=== PATIENT | female | born 1970 | race Caucasian/White ===

== ENCOUNTER 2022-05-29 09:14 | Inpatient (IN) ==
[2022-05-29] MEDS ORDERED: IOPAMIDOL 100 ML BOTTLE IV ONE (09:15)
[2022-05-29] MEDS ORDERED: KETOROLAC 30 MG/ML VIAL IV ONE (09:43)
--- NOTE | 2022-05-29 09:45 | Emergency Department Note ---
HPI General Chief complaint: Sorethroat Stated complaint: swollen glands in neck Time Seen by Provider: 05/29/22 09:16 Source: patient Mode of arrival: ambulatory History of Present Illness HPI Narrative: Narrative: Patient is a 51-year-old female with a history of hypertension, type 1 diabetes, and hyperlipidemia who presents to the emergency department due to throat and neck pain. She states that she has been seen several times recently. 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 She was given steroids and acyclovir, but did not take these. She states that she was concerned about her blood sugar with the steroids, so did not take them until she could talk to her "diabetes doctor." She did not take the acyclovir because this was melyssa ething that had to be taken multiple times today. She went to [facility] where she was prescribed valacyclovir which does not have to be taken as often. She states that she has started to take both the steroid and valacyclovir. Over the last day she has begun to have severe throat pain and pain of the neck on the right side. She states that it hurts to swallow. She endorses pain to her ear on the right. She denies any other symptoms at this time. Related Data Home Medications Medication Instructions Recorded Confirmed famotidine 20 mg tablet (Pepcid) 20 mg PO BID 01/23/21 04/05/22 insulin lispro [Humalog U-100 subcut 01/23/21 04/05/22 Insulin] estradiol 0.5 mg tablet 0.5 mg PO QDAY 04/05/22 04/05/22 Previous Rx's Medication Instructions Recorded meloxicam 7.5 mg tablet 15 mg PO .daily PRN pain #60 tabs 09/07/21 albuterol sulfate 90 mcg/actuation 2 puff inhalation Q4H PRN 02/03/22 aerosol inhaler shortness of breath or wheezing #8.5 grams tramadol 50 mg tablet 50 mg PO QHS PRN pain #4 tabs 02/25/22 hydrochlorothiazide 25 mg tablet 25 mg PO QDAY #90 tabs 04/05/22 losartan 50 mg tablet 50 mg PO QDAY #90 tabs 04/05/22 acyclovir 800 mg tablet 800 mg PO 5XD 7 days #35 tabs 05/25/22 valacyclovir 1 gram tablet 1,000 mg PO Q8H 7 days #21 tabs 05/27/22 Allergies Allergy/AdvReac Type Severity Reaction Status Date / Time atenolol Allergy Severe Difficulty Verified 05/29/22 09:22 Breathing Cefaclor [From Ceclor] Allergy Unknown Rash & Verified 05/29/22 09:22 asthma flare up cephalexin [From Keflex] Allergy Unknown Rash & Verified 05/29/22 09:22 asthma flare up Sulfa (Sulfonamide Allergy Unknown Rash & Verified 05/29/22 09:22 Antibiotics) asthma flare up Review of Systems ROS ROS Narrative: Narrative: Constitutional: Denies fever or weakness Eyes: Denies eye pain or vision change ENT ED: Reports ear pain, throat pain, congestion and rhinorrhea; Denies hearing loss Cardiovascular: Denies chest pain, dyspnea on exertion, orthopnea or edema Respiratory: Denies shortness of breath or cough Gastrointestinal: Denies abdominal pain, nausea, vomiting, diarrhea, constipation, hematochezia or melena Musculoskeletal: Denies back pain or myalgia Integumentary: Denies rash or lesions Neurological: Denies headache, weakness, numbness, confusion, abnormal gait or dizziness PFSH Narrative Patient History Narrative: Narrative: Medical/Surgical/Family History All Active Problems (Updated 05/29/22 @ 13:37 by Harrison Monk MD) Sepsis (Acute) Soft tissue infection (Acute) Viral upper respiratory tract infection (Acute) Rodriguez's palsy (Acute) Medicare annual wellness visit, initial (Acute) Hypertension (Acute) Type 1 diabetes (Chronic) High cholesterol (Acute) GERD (gastroesophageal reflux disease) (Acute) Gastroparesis (Acute) Neuropathy (Acute) Kidney disease (Acute) Hyperlipidemia (Acute) Pain, joint, multiple sites (Chronic) History of smoking (Acute) Sinusitis (Acute) UTI (urinary tract infection) (Acute) Medical History Diabetic cheirarthropathy Gastroparesis GERD (gastroesophageal reflux disease) High cholesterol History of smoking quit in 2017 Hyperlipidemia Hypertension Kidney disease Medicare annual wellness visit, initial Neuropathy Pain, joint, multiple sites Type 1 diabetes UTI (urinary tract infection) Surgical History History of x2 History of cholecystectomy late 20s History of hysterectomy 2010 - ovaries intact History of right breast biopsy 2019 History of tonsillectomy Hx of appendectomy 20s Family History Mother Uterine cancer Family/Other Breast cancer Social History Smoking Status: Former smoker Alcohol Intake Frequency: does not drink Substance Use: does not use Exam Narrative Narrative: Narrative: General General appearance: Present alert and in no apparent distress; Absent anxious, appears intoxicated or sleepy Head Head: Present atraumatic and normocephalic Eye Eye: Present PERRL and EOMI; Absent scleral icterus or nystagmus ENT ENT: Present mucous membranes moist and TM's normal bilaterally; Absent normal o ropharynx (Erythema) or nasal congestion Neck Neck: Present full ROM; Absent tenderness Chest Chest: Present normal inspection and symmetric chest wall rise Respiratory Respiratory: Present normal lung sounds bilaterally; Absent respiratory distress or accessory muscle use Cardiovascular Cardiovascular: Present normal rhythm, tachycardia and normal heart sounds Adbominal Abdominal: Present soft and normal bowel sounds; Absent distention Extremities Extremities: Present normal inspection and full ROM; Absent tenderness Back Back: Present normal inspection and full ROM; Absent tenderness Neurological Neurological: Present alert and oriented X3 Psychiatric Psychiatric: Present normal affect and normal mood Skin Skin: Present warm (WNL), dry and normal color Course Vital Signs Vital signs: Vital Signs Temperature 99.4 F H 05/29/22 09:18 Pulse Rate 123 H 05/29/22 09:18 Respiratory Rate 18 05/29/22 09:18 Blood Pressure 113/67 05/29/22 09:18 Pulse Oximetry (%) 99 05/29/22 09:18 Oxygen Delivery Method Room Air 05/29/22 09:18 Temperature 99.4 F H 05/29/22 09:18 Pulse Rate 114 H 05/29/22 13:18 Respiratory Rate 18 05/29/22 09:18 Blood Pressure 122/55 05/29/22 10:18 Pulse Oximetry (%) 98 05/29/22 13:18 Oxygen Delivery Method Room Air 05/29/22 09:18 [facility] MDM Narrative Medical decision making narrative: Narrative: Patient is a 51-year-old female presents to the emergency department due to sore throat. Differential diagnoses include strep, mono, and deep space infection of the neck. Patient's labs do demonstrate a very elevated white blood cell count of 31. This may partially be due to patient's recent initiation of steroids. Given patient's tachycardia and white blood cell count elevation blood cultures, procalcitonin, and CG 4 have been ordered. Antibiotics have also been ordered. CT scan results were given verbally to me by Dr. Ruiz. He stated that there were enlarged lymph nodes on the right as well as inflammation peripheral to the larynx. Given these findings I have spoken to Dr. Bishop and he has agreed to see and evaluate patient for admission. Lab Data 05/29/22 10:11 Labs: Lab Results 05/29/22 05/29/22 05/29/22 Range/Units 10:06 10:11 10:11 WBC 31.7 H* (4.5-11.0) K/mcL RBC 4.24 (3.59-5.38) M/mcL Hgb 12.0 (11.2-15.7) g/dL Hct 35.3 (34.1-44.9) % POC Hct 35.0 L (36-48) MCV 83.3 (80.0-100.0) fL MCH 28.3 (26.0-34.0) pg MCHC 34.0 (31.0-36.0) g/dL RDW 12.1 (11.5-14.5) % Plt Count 223 (140-440) K/mcL MPV 11.6 (8.8-12.5) fL Immature Gran % (Auto) 1.0 H (0.0-0.5) % Neut % (Auto) 89.9 H (38.0-78.0) % Lymph % (Auto) 2.5 L (15.5-49.0) % [place] % (Auto) 6.4 (1.0-12.0) % Eos % (Auto) 0 (0.0-7.0) % Baso % (Auto) 0.2 (0.0-2.0) % Lymph # (Auto) 0.79 L (1.50-4.80) K/mcL [place] # (Auto) 2.02 H (0.10-0.90) K/mcL Eos # (Auto) 0 (0.00-0.70) K/mcL Baso # (Auto) 0.07 (0.00-0.30) K/mcL Immature Gran # 0.33 H (0.00-0.05) K/mcl Absolute Neutrophils 28.44 H (1.80-8.00) K/mcL POC VBG pH (7.32-7.42) POC VBG pCO2 at Temp (41-51) POC VBG pO2 (25-40) POC VBG HCO3 (24-28) POC VBG Total CO2 (25-29) POC Venous O2 Sat (40-70) POC VBG Base Excess (-2-2) VBG Lactic Acid (0.5-2) POC Sodium 134 (133-145) POC Potassium 3.7 (3.3-5.1) POC Chloride 98 (96-108) POC Total CO2 27.0 (22-30) POC BUN 29 H (6-20) POC Creatinine 1.2 (0.6-1.2) POC Glucose 283 H (70-105) POC WB Ioniz Calcium 1.18 (1.16-1.32) Procalcitonin (<0.10) ng/mL Monoscreen Negative (Negative) 05/29/22 05/29/22 Range/Units 12:02 12:13 WBC (4.5-11.0) K/mcL RBC (3.59-5.38) M/mcL Hgb (11.2-15.7) g/dL Hct (34.1-44.9) % POC Hct (36-48) MCV (80.0-100.0) fL MCH (26.0-34.0) pg MCHC (31.0-36.0) g/dL RDW (11.5-14.5) % Plt Count (140-440) K/mcL MPV (8.8-12.5) fL Immature Gran % (Auto) (0.0-0.5) % Neut % (Auto) (38.0-78.0) % Lymph % (Auto) (15.5-49.0) % [place] % (Auto) (1.0-12.0) % Eos % (Auto) (0.0-7.0) % Baso % (Auto) (0.0-2.0) % Lymph # (Auto) (1.50-4.80) K/mcL [place] # (Auto) (0.10-0.90) K/mcL Eos # (Auto) (0.00-0.70) K/mcL Baso # (Auto) (0.00-0.30) K/mcL Immature Gran # (0.00-0.05) K/mcl Absolute Neutrophils (1.80-8.00) K/mcL POC VBG pH 7.40 (7.32-7.42) POC VBG pCO2 at Temp 39.1 L (41-51) POC VBG pO2 31 (25-40) POC VBG HCO3 24.5 (24-28) POC VBG Total CO2 26.0 (25-29) POC Venous O2 Sat 60.0 (40-70) POC VBG Base Excess 0 (-2-2) VBG Lactic Acid 0.6 (0.5-2) POC Sodium (133-145) POC Potassium (3.3-5.1) POC Chloride (96-108) POC Total CO2 (22-30) POC BUN (6-20) POC Creatinine (0.6-1.2) POC Glucose (70-105) POC WB Ioniz Calcium (1.16-1.32) Procalcitonin 0.14 H (<0.10) ng/mL Monoscreen (Negative) ED POC Tests ED POC Tests: Streptococcus A Rapid Test Negative Discharge Plan Patient/Caregiver Discharge Instructions Pt seen by MORTGAGE MANAGER/PA only: No Clinical Impression: Sepsis, Soft tissue infection Patient Disposition: Xfer As Inpt ([facility]) Follow up with: Devon Juarez MD [Primary Care Provider] - Prescriptions: No Action meloxicam 7.5 mg tablet 15 mg PO .daily PRN (Reason: pain) Qty: 60 0RF Rx Instructions: with food albuterol sulfate 90 mcg/actuation HFA aerosol inhaler 2 puff inhalation Q4H PRN (Reason: shortness of breath or wheezing) Qty: 8.5 0RF hydrochlorothiazide 25 mg tablet 25 mg PO QDAY Qty: 90 3RF losartan 50 mg tablet 50 mg PO QDAY Qty: 90 3RF famotidine [Pepcid] 20 mg tablet 20 mg PO BID insulin lispro [Humalog U-100 Insulin] subcut Patient Comments: PUMP estradiol 0.5 mg tablet 0.5 mg PO QDAY tramadol 50 mg tablet 50 mg PO QHS PRN (Reason: pain) Qty: 4 0RF valacyclovir 1 gram tablet 1,000 mg PO Q8H 7 Days Qty: 21 0RF acyclovir 800 mg tablet 800 mg PO 5XD 7 Days Qty: 35 0RF Rx Instructions: space evenly during waking hours
[2022-05-29 10:11] LABS: POC Calcium, Ionized 1.18 (1.16-1.32); POC Creatinine 1.2 (0.6-1.2); POC Potassium 3.7 (3.3-5.1)
[2022-05-29] MEDS ORDERED: 0.9 % SODIUM CHLORIDE 1,000 ML IV ONE ×3 (10:12→11:16)
[2022-05-29 10:58] LABS: Basophils # (Auto) 0.07 K/mcL (0.00-0.30); Basophils % (Auto) 0.2 % (0.0-2.0); Eosinophils # (Auto) 0 K/mcL (0.00-0.70); Eosinophils % (Auto) 0 % (0.0-7.0); Hematocrit 35.3 % (34.1-44.9); Lymphocytes # (Auto) 0.79 K/mcL (1.50-4.80); Lymphocytes % (Auto) 2.5 % (15.5-49.0); Mean Cell Volume 83.3 fL (80.0-100.0); Mean Platelet Volume 11.6 fL (8.8-12.5); Monocytes # (Auto) 2.02 K/mcL (0.10-0.90); Monocytes % (Auto) 6.4 % (1.0-12.0); Neutrophils % (Auto) 89.9 % (38.0-78.0); Platelet Count 223 K/mcL (140-440); RBC 4.24 M/mcL (3.59-5.38); Red Cell Distribution Width 12.1 % (11.5-14.5); WBC 31.7 K/mcL (4.5-11.0)
[2022-05-29] MEDS ORDERED: CEFEPIME 1 GM VIAL IV ONE (11:11)
[2022-05-29] MEDS ORDERED: VANCOMYCIN 1,500 MG in 0.9 % SODIUM CHLORIDE 500 ML IV ONE (11:11)
--- NOTE | 2022-05-29 12:51 | Internal Med History&Physical ---
HPI History of Present Illness Patient information: Note initiated : 05/29/22 at 12:48 pm Service Date, if different from initiated Date: [] Patient: Marlin Aceves a 51 y/o F admitted on for swollen glands in neck. Chief Complaint: [] History of present illness: Ms. Aceves is a 51 year old Female with a history of type 1 diabetes mellitus, hypertension, hyperlipidemia who presents for right-sided neck pain and difficulty swallowing. The patient says that about 3 weeks ago she developed sinus pain followed by right facial drooping consistent with Rodriguez's palsy. The patient was started on antivirals with valacyclovir and also given a pres cription for prednisone which she did not initially take. Patient says that her sinus pain improved however she later developed right-sided neck pain and chills. The pain progressively worsened so she decided to go to the emergency department. In the emergency department, the patient had a fever and tachycardia and leukocytosis. A CT of her neck reportedly showed significant amount of inflammation, no abscess and no evidence of airway impingement. Hospital medicine was consulted for admission for sepsis secondary to a soft tissue neck infection. Review of systems Constitutional: Positive for chills Neck: Positive for right-sided and neck pain Eyes: no vision changes or pain Cardiovascular: no chest pain, no palpitations Respiratory: no cough or dyspnea Gastrointestinal: Positive for odynophagia, mild nausea but no vomiting, no abdominal pain, no diarrhea Genitourinary: no dysuria or difficulty voiding Musculoskeletal: no arthralgia or myalgia Integumentary: no skin lesion or wound Neurological: no focal weakness or numbness Psychiatric: no anxiety or depression Physical exam Head: Atraumatic, normal inspection. Eyes: normal appearance, no scleral icterus. Neck: Right-sided neck edema, tenderness to light palpation Respiratory: no respiratory distress. Cardiovascular: normal rate and rhythm, S1, S2. GI/Abdominal: soft, nontender, no guarding. Extremities: full range of motion, nontender. Neurological: Right-sided facial droop including forehead muscles consistent with Rodriguez's palsy Psychiatric: normal mood. Skin: Mild right neck erythema PFSH PFSH All Active Problems Viral upper respiratory tract infection (Acute) Rodriguez's palsy (Acute) Medicare annual wellness visit, initial (Acute) Hypertension (Acute) Type 1 diabetes (Chronic) High cholesterol (Acute) GERD (gastroesophageal reflux disease) (Acute) Gastroparesis (Acute) Neuropathy (Acute) Kidney disease (Acute) Hyperlipidemia (Acute) Pain, joint, multiple sites (Chronic) History of smoking (Acute) Sinusitis (Acute) UTI (urinary tract infection) (Acute) Medical History Diabetic cheirarthropathy Gastroparesis GERD (gastroesophageal reflux disease) High cholesterol History of smoking quit in 2017 Hyperlipidemia Hypertension Kidney disease Medicare annual wellness visit, initial Neuropathy Pain, joint, multiple sites Type 1 diabetes UTI (urinary tract infection) Surgical History History of x2 History of cholecystectomy late 20s History of hysterectomy 2010 - ovaries intact History of right breast biopsy 2019 History of tonsillectomy Hx of appendectomy 20s Family History Mother Uterine cancer Family/Other Breast cancer Social History household members: spouse and family housing: house lives independently: Yes marital status: occupational status: disabled smoking status: Former smoker smoking status stop date: 03/21/16 alcohol intake frequency: does not drink substance use type: does not use MEDS/ALLERGIES Home Medications and Allergies Home Medications Medication Instructions Recorded Confirmed Type famotidine 20 mg tablet (Pepcid) 20 mg PO BID 01/23/21 04/05/22 History insulin lispro [Humalog U-100 subcut 01/23/21 04/05/22 History Insulin] meloxicam 7.5 mg tablet 15 mg PO .daily PRN pain #60 tabs 09/07/21 04/05/22 Rx albuterol sulfate 90 mcg/actuation 2 puff inhalation Q4H PRN 02/03/22 04/05/22 Rx aerosol inhaler shortness of breath or wheezing #8.5 grams tramadol 50 mg tablet 50 mg PO QHS PRN pain #4 tabs 02/25/22 04/05/22 Rx estradiol 0.5 mg tablet 0.5 mg PO QDAY 04/05/22 04/05/22 History hydrochlorothiazide 25 mg tablet 25 mg PO QDAY #90 tabs 04/05/22 Rx losartan 50 mg tablet 50 mg PO QDAY #90 tabs 04/05/22 Rx acyclovir 800 mg tablet 800 mg PO 5XD 7 days #35 tabs 05/25/22 Rx valacyclovir 1 gram tablet 1,000 mg PO Q8H 7 days #21 tabs 05/27/22 05/27/22 Rx Allergies Allergy/AdvReac Type Severity Reaction Status Date / Time atenolol Allergy Severe Difficulty Verified 05/29/22 09:22 Breathing Cefaclor [From Ceclor] Allergy Unknown Rash & Verified 05/29/22 09:22 asthma flare up cephalexin [From Keflex] Allergy Unknown Rash & Verified 05/29/22 09:22 asthma flare up Sulfa (Sulfonamide Allergy Unknown Rash & Verified 05/29/22 09:22 Antibiotics) asthma flare up EXAM Constitutional Vitals: Temp Pulse Resp BP Pulse Ox O2 Del Method 99.4 F H 118 H 18 122/55 98 Room Air 05/29/22 09:18 05/29/22 12:39 05/29/22 09:18 05/29/22 10:18 05/29/22 12:39 05/29/22 09:18 DATA Data Completed and Pending Labs: Labs from last 24 hours 05/29/22 05/29/22 05/29/22 12:13 12:02 10:11 WBC RBC Hgb Hct POC Hct MCV MCH MCHC RDW Plt Count MPV Immature Gran % (Auto) Neut % (Auto) Lymph % (Auto) [place] % (Auto) Eos % (Auto) Baso % (Auto) Lymph # (Auto) [place] # (Auto) Eos # (Auto) Baso # (Auto) Immature Gran # Absolute Neutrophils POC VBG pH 7.40 POC VBG pCO2 at Temp 39.1 L POC VBG pO2 31 POC VBG HCO3 24.5 POC VBG Total CO2 26.0 POC Venous O2 Sat 60.0 POC VBG Base Excess 0 VBG Lactic Acid 0.6 POC Sodium POC Potassium POC Chloride POC Total CO2 POC BUN POC Creatinine POC Glucose POC WB Ioniz Calcium Procalcitonin 0.14 H Monoscreen Negative 05/29/22 05/29/22 10:11 10:06 WBC 31.7 H* RBC 4.24 Hgb 12.0 Hct 35.3 POC Hct 35.0 L MCV 83.3 MCH 28.3 MCHC 34.0 RDW 12.1 Plt Count 223 MPV 11.6 Immature Gran % (Auto) 1.0 H Neut % (Auto) 89.9 H Lymph % (Auto) 2.5 L [place] % (Auto) 6.4 Eos % (Auto) 0 Baso % (Auto) 0.2 Lymph # (Auto) 0.79 L [place] # (Auto) 2.02 H Eos # (Auto) 0 Baso # (Auto) 0.07 Immature Gran # 0.33 H Absolute Neutrophils 28.44 H POC VBG pH POC VBG pCO2 at Temp POC VBG pO2 POC VBG HCO3 POC VBG Total CO2 POC Venous O2 Sat POC VBG Base Excess VBG Lactic Acid POC Sodium 134 POC Potassium 3.7 POC Chloride 98 POC Total CO2 27.0 POC BUN 29 H POC Creatinine 1.2 POC Glucose 283 H POC WB Ioniz Calcium 1.18 Procalcitonin Monoscreen A/P Narrative A/P Narrative: Assessment: 51-year-old female with a history of type 1 diabetes mellitus managed with an insulin pump, hypertension, hyperlipidemia, recent Rodriguez's palsy admitted for sepsis secondary to a soft tissue neck infection. Per report, radiology does not think there is a drainable fluid collection associated with this infection. #Sepsis secondary to a soft tissue neck infection #Type 1 diabetes mellitus #Hypertension #Hyperlipidemia #Rodriguez's palsy Plan -Vancomycin IV per pharmacy and Unasyn. -IV fluid. -Analgesics for neck pain. -Follow blood cultures x2. -Follow-up pending CT report. -Monitor for signs of airway compromise due to neck edema. -Utilize insulin pump and continuous glucose meter for inpatient diabetes mellitus management. -Monitor CBC and chemistry. -Home medication reconciliation. -Consistent carbohydrate diet. -DVT prophylaxis: Lovenox -Disposition: Admit to inpatient PCU for IV antibiotics, IV fluid and monitoring. If all goes well, I anticipate the patient will discharge to home in about 3 days on oral antibiotics. Time Spent With Patient Time: Total time spent is greater than 50% in coordination of care (as documented) at patient's floor/unit and/or counseling patient:
[2022-05-29] MEDS ORDERED: AMPICILLIN SODIUM/SULBACTAM NA 3 GM in 0.9 % SODIUM CHLORIDE 100 ML IV SCH (14:00)
[2022-05-29] MEDS ORDERED: KETOROLAC 30 MG/ML VIAL IV PRN (14:49)
[2022-05-29] MEDS ORDERED: SENNOSIDES 1 TABLET PO PRN (14:49)
[2022-05-29] MEDS ORDERED: LACTULOSE 20 GM/30 ML ORAL.SOL PO PRN (14:49)
[2022-05-29] MEDS ORDERED: VANCOMYCIN PER PHARMACY IV ONE (14:49)
--- NOTE | 2022-05-29 14:50 | Cat Scan Report ---
CLINICAL INFORMATION: Throat pain with right-sided swelling with dysphagia COMPARISON: None. TECHNIQUE: 80ml of Isovue-[id number] were injected and 0.625mm helical slices were obtained from orbital floor through the thoracic inlet. Following reconstructions, sagittal, coronal and axial reformatted images were processed. Exam was reviewed at bone, lung and soft tissue windows. The exam was performed using radiation dose optimization techniques including, but not limited to, automated exposure control, adjustment of the mA and/or kV according to patient size and use of iterative reconstruction technique. FINDINGS: There is mild wall thickening of the right oropharynx and nasopharynx with inflammation in the parapharyngeal soft tissues with extension inferior to right periglottic region. There are 4-5 markedly enlarged lymph nodes at the level 1B and two levels predominantly in the submandibular region. Findings most compatible with right pharyngitis. The true and false vocal cords, epiglottis, aryepiglottic folds, tongue base and prevertebral soft tissues are all unremarkable. Trachea and cervical esophageal regions are all normal. The carotid and jugular vascular systems are unremarkable. The thyroid is normal in size. There is a complex solid cystic nodule superior pole the right thyroid spanning 16 mm. An 8 mm enhancing nodule seen in the mid left thyroid and a 5 mm solid cystic nodule inferior right lobe of thyroid. Both submandibular and parotid glands are normal and symmetric in size configuration and attenuation without focal lesion. Visualized paranasal sinuses are clear. Lung apices are unremarkable. The cervical spine is normal in curvature and alignment without osseous abnormality. Cervical cord is normal. IMPRESSION: Moderate thickening of the right nasopharynx and oropharynx mck[place] including the pharyngeal mucosal space with inflammation extending in the right extra pharyngeal soft tissues inferiorly to the right periglottic region. Findings suggestive of pharyngitis. Enlarged level two and 1B lymph nodes, predominantly in the submandibular region, likely represent reactive adenopathy. Scattered thyroid nodules suggest thyroid ultrasound Interpreted and Authenticated by: Mike Ruiz 05/29/22
[2022-05-29] MEDS: HYDROcodone/APAP 5/325MG TABLET PO PRN ×2 (14:58→20:55)
[2022-05-29] MEDS: ACETAMINOPHEN 325 MG TABLET PO PRN ×2 (14:59→20:57)
[2022-05-29] MEDS: 0.9 % SODIUM CHLORIDE 1,000 ML IV SCH (15:08)
[2022-05-29] MEDS: 0.9 % SODIUM CHLORIDE 10 ML SYRINGE IV SCH ×2 (15:09→22:12)
[2022-05-29] MEDS ORDERED: KETOROLAC 15 MG/ML VIAL IV PRN (15:30)
[2022-05-29] MEDS: AMPICILLIN SODIUM/SULBACTAM NA 3 GM in 0.9 % SODIUM CHLORIDE 100 ML IV SCH ×2 (16:27→23:00)
[2022-05-29] MEDS ORDERED: HYDROmorphone 0.5 MG/0.5 ML SYRINGE ONE ×2 (17:55→19:01)
[2022-05-29] MEDS: HYDROmorphone 0.5 MG/0.5 ML SYRINGE IV PRN ×2 (17:56→19:02)
[2022-05-29] MEDS ORDERED: KETOROLAC 15 MG/ML VIAL IV SCH (18:00)
[2022-05-29] MEDS: ONDANSETRON 4 MG/2 ML VIAL IV PRN (19:02)
[2022-05-29] MEDS: DOCUSATE SODIUM 100 MG CAPSULE PO SCH (20:19)
[2022-05-29] MEDS ORDERED: METOCLOPRAMIDE 10 MG/2 ML VIAL ONE (22:17)
[2022-05-29] MEDS: METOCLOPRAMIDE 10 MG/2 ML VIAL IV PRN (22:17)
[2022-05-30] MEDS: AMPICILLIN SODIUM/SULBACTAM NA 3 GM in 0.9 % SODIUM CHLORIDE 100 ML IV SCH ×4 (00:16→17:34)
[2022-05-30] MEDS: 0.9 % SODIUM CHLORIDE 1,000 ML IV SCH ×4 (01:48→21:04)
[2022-05-30] MEDS: HYDROmorphone 0.5 MG/0.5 ML SYRINGE IV PRN ×3 (04:41→15:28)
[2022-05-30] MEDS: 0.9 % SODIUM CHLORIDE 10 ML SYRINGE IV SCH ×3 (05:13→20:07)
[2022-05-30] MEDS: ONDANSETRON 4 MG/2 ML VIAL IV PRN ×3 (05:35→15:28)
[2022-05-30 06:37] LABS: Basophils # (Auto) 0.05 K/mcL (0.00-0.30); Basophils % (Auto) 0.2 % (0.0-2.0); Eosinophils # (Auto) 0.04 K/mcL (0.00-0.70); Eosinophils % (Auto) 0.2 % (0.0-7.0); Hematocrit 28.8 % (34.1-44.9); Hemoglobin 9.3 g/dL (11.2-15.7); Lymphocytes # (Auto) 0.97 K/mcL (1.50-4.80); Lymphocytes % (Auto) 4.6 % (15.5-49.0); Mean Cell Volume 87.5 fL (80.0-100.0); Mean Corpuscular HGB Conc 32.3 g/dL (31.0-36.0); Mean Platelet Volume 11.5 fL (8.8-12.5); Monocytes # (Auto) 1.26 K/mcL (0.10-0.90); Neutrophils % (Auto) 87.8 % (38.0-78.0); Platelet Count 176 K/mcL (140-440); RBC 3.29 M/mcL (3.59-5.38); Red Cell Distribution Width 12.5 % (11.5-14.5); WBC 21.1 K/mcL (4.5-11.0)
[2022-05-30] MEDS ORDERED: METOCLOPRAMIDE 10 MG/2 ML VIAL ONE (06:54)
[2022-05-30] MEDS: METOCLOPRAMIDE 10 MG/2 ML VIAL IV PRN ×3 (06:55→19:03)
[2022-05-30 06:58] LABS: ALT/SGPT 96 U/L (<40); AST/SGOT 110 U/L (<32); Albumin 2.7 gm/dL (3.2-5.2); Alkaline Phosphatase 121 U/L (39-117); Bilirubin,Direct < 0.2 mg/dL (0-0.3); Bilirubin,Total 0.3 mg/dL (0.1-1.0); Blood Urea Nitrogen 26 mg/dL (6-20); Carbon Dioxide 22 mmol/L (22-30); Chloride 108 mmol/L (96-108); Globulin 2.7 gm/dL (2.2-3.7); Glomerular Filtration Rate 65; Glucose 183 mg/dL (70-105); Lactate Dehydrogenase 224 U/L (135-225); Phosphorous 2.4 mg/dL (2.5-4.5); Triglycerides 107 mg/dL (<150); Uric Acid 4.6 mg/dL (2.5-8.0)
--- NOTE | 2022-05-30 08:46 | Internal Med Progress Note ---
SUBJECTIVE Subjective Patient information: Note initiated : 05/30/22 at 8:44 am Service Date, if different from initiated Date: [] Patient: Marlin Aceves 51 y/o F admitted on 05/29/22 for swollen glands in neck. Chief Complaint: [] Interval history: Ms. Aceves is a 51 year old Female with a history of type 1 diabetes mellitus, hypertension, hyperlipidemia who presents for right-sided neck pain and difficulty swallowing. The patient says that about 3 weeks ago she developed sinus pain followed by right facial drooping consistent with Rodriguez's palsy. The patient was started on antivirals with valacyclovir and also given a prescription for prednisone which she did not initially take. Patient says that her sinus pain improved however she later developed right-sided neck pain and chills. The pain progressively worsened so she decided to go to the emergency department. In the emergency department, the patient had a fever and tachycar jovanni and leukocytosis. A CT of her neck reportedly showed significant amount of inflammation, no abscess and no evidence of airway impingement. Hospital medicine was consulted for admission for sepsis secondary to a soft tissue neck infection. 05/30 Patient did have high-grade temperatures but no fevers overnight. White blood cell count now trending down. Patient did have nausea and vomiting, Zofran was not effective so Reglan IV as needed was added and more effective. Note the patient does have a history of gastroparesis. Blood cultures pending. Continues on vancomycin IV and Unasyn. Physical exam Head: Atraumatic, normal inspection. Eyes: normal appearance, no scleral icterus. Neck: Right-sided neck edema, tenderness to light palpation Respiratory: no respiratory distress. Cardiovascular: normal rate and rhythm, S1, S2. GI/Abdominal: soft, nontender, no guarding. Extremities: full range of motion, nontender. Neurological: Right-sided facial droop including forehead muscles consistent with Rodriguez's palsy Psychiatric: normal mood. Skin: Mild right neck erythema Constitutional Vitals: Vital Signs Temp Pulse Resp BP Pulse Ox O2 Del Method O2 Flow Rate 98.8 F 88 18 100/53 94 Room Air 1 05/30/22 06:58 05/30/22 06:58 05/30/22 06:58 05/30/22 06:58 05/30/22 06:58 05/30/22 06:58 05/30/22 04:01 Period Temp Pulse Resp BP Sys/Holguin Pulse Ox O2 Del Method O2 Flow Rate Last 24 Hr 98.8 F-102.5 F 77-123 16-18 100-133/53-68 94-99 Nasal Cannula- Room Air 0-1 Intake and Output 05/29/22 05/30/22 05/30/22 18:59 03:59 11:59 Intake Total 200 Output Total 250 Balance -50 Weight Intake & Output: Intake & Output 05/29/22 05/30/22 05/30/22 18:59 03:59 11:59 Intake Total 200 Output Total 250 Balance -50 Weight Intake: IV 100 Sodium Chloride 0.9% 1,000 ml @ 100 mls/hr IV .Q10H [facility] Rx#: [id number] Unasyn 3 gm In Sodium Chloride 100 0.9% 100 ml @ 200 mls/hr IV Q6H AIDE Rx#:[id number] Vancomycin 1,500 mg In Sodium Chloride 0.9% 500 ml @ 333.3 mls/hr IV ONCE ONE Rx#: [id number] Oral 100 Output: Void Amount 250 Other: Meal Breakfast Percent of Meal Consumed few bites Feeding Ability Independent Urine Appearance Clear Urine Color Dark Yellow Urine Odor Strong # Voids 1 # Unmeasured Emesis OBJ DATA Labs 05/30/22 05:35 05/30/22 05:35 Labs: Abnormal Lab Results 05/30/22 05/30/22 05/29/22 05:35 05:35 12:13 WBC 21.1 H RBC 3.29 L Hgb 9.3 L Hct 28.8 L POC Hct Immature Gran % (Auto) 1.2 H Neut % (Auto) 87.8 H Lymph % (Auto) 4.6 L Lymph # (Auto) 0.97 L Porter # (Auto) 1.26 H Immature Gran # 0.26 H Absolute Neutrophils 18.53 H POC VBG pCO2 at Temp 39.1 L POC BUN BUN 26 H Glucose 183 H POC Glucose Calcium 8.0 L Phosphorus 2.4 L AST 110 H ALT 96 H Alkaline Phosphatase 121 H Total Protein 5.4 L Albumin 2.7 L Procalcitonin 05/29/22 05/29/22 05/29/22 12:02 10:11 10:06 WBC 31.7 H* RBC Hgb Hct POC Hct 35.0 L Immature Gran % (Auto) 1.0 H Neut % (Auto) 89.9 H Lymph % (Auto) 2.5 L Lymph # (Auto) 0.79 L Porter # (Auto) 2.02 H Immature Gran # 0.33 H Absolute Neutrophils 28.44 H POC VBG pCO2 at Temp POC BUN 29 H BUN Glucose POC Glucose 283 H Calcium Phosphorus AST ALT Alkaline Phosphatase Total Protein Albumin Procalcitonin 0.14 H Meds: Medications Acetaminophen (Acetaminophen 325 Mg Tablet) 650 mg PO Q6HP PRN; Protocol PRN Reason: Per Pain Protocol/Fever > 101 Last Admin: 05/29/22 14:59 Dose: 650 mg Hydrocodone Bitart/Acetaminophen (Hydrocodone/Apap 5/325mg Tablet) 1 tab PO Q6HP PRN; Protocol PRN Reason: Per Pain Protocol Last Admin: 05/29/22 14:58 Dose: 1 tab Docusate Sodium (Docusate Sodium 100 Mg Capsule) 100 mg PO BID [facility] Last Admin: 05/29/22 20:19 Dose: Not Given Enoxaparin Sodium (Enoxaparin 40 Mg/0.4 Ml Syringe) 40 mg SQ DAILY [facility] Hydromorphone HCl (Hydromorphone 0.5 Mg/0.5 Ml Syringe) 0.5 mg IV Q1HP PRN; Protocol PRN Reason: Per Pain Protocol Last Admin: 05/30/22 04:41 Dose: 0.5 mg Sodium Chloride (Sodium Chloride 0.9%) 1,000 mls @ 100 mls/hr IV .Q10H [facility] Last Admin: 05/30/22 01:48 Dose: 100 mls/hr Ampicillin Sodium/Sulbactam (Sodium 3 gm/ Sodium Chloride) 100 mls @ 200 mls/hr IV Q6H [facility] Last Infusion: 05/30/22 06:40 Dose: Infused Ketorolac Tromethamine (Ketorolac 15 Mg/Ml Vial) 15 mg IV Q6HP [facility] Stop: 06/01/22 18:01 Last Admin: 05/29/22 23:29 Dose: 15 mg Lactulose (Lactulose 20 Gm/30 Ml Oral.Nahed) 10 gm PO DAILYP PRN PRN Reason: Constipation Metoclopramide HCl (Metoclopramide 10 Mg/2 Ml Vial) 5 mg IV Q6HP PRN PRN Reason: Nausea Last Admin: 05/30/22 06:55 Dose: 5 mg Ondansetron HCl (Ondansetron 4 Mg/2 Ml Vial) 4 mg IV Q4HP PRN; Protocol PRN Reason: Nausea And Vomiting Last Admin: 05/30/22 05:35 Dose: 4 mg Senna (Sennosides 1 Tablet) 2 tab PO HSP PRN PRN Reason: Constipation Sodium Chloride (0.9 % Sodium Chloride 10 Ml Syringe) 10 ml IV Q8 AIDE Last Admin: 05/30/22 05:13 Dose: Not Given A/P Narrative A/P Narrative: Assessment: 51-year-old female with a history of type 1 diabetes mellitus managed with an insulin pump, hypertension, hyperlipidemia, recent Rodriguez's palsy admitted for sepsis secondary to a soft tissue neck infection. CT of the patient's neck with contrast showed moderate thickening of the right nasopharynx and oropharynx mckoy including the pharyngeal mucosal space with inflammation extending in the right extra pharyngeal soft tissue inferiorly to the right par aglottic region, no abscess identified. #Sepsis secondary to a soft tissue neck infection #Right-sided neck pain secondary to infection/inflammation #Nausea and vomiting #Mild transaminitis #Type 1 diabetes mellitus complicated by gastroparesis and neuropathy #Essential hypertension #Hyperlipidemia #Rodriguez's palsy #GERD Plan -Vancomycin IV per pharmacy and Unasyn. -IV fluid. -Follow blood cultures x2. -Monitor WBC, renal function, electrolytes, LFTs. -Analgesics as needed. -Antiemetics as needed. -Utilize the patient's insulin pump and continuous glucose meter for inpatient diabetes mellitus management. -Continue home Pepcid, holding home losartan and hydrochlorothiazide for now. -Consistent carbohydrate diet. -DVT prophylaxis: Lovenox -Disposition: Currently inpatient PCU for IV antibiotics, IV fluid and monitoring. Time Spent With Patient Time: Total time spent is greater than 50% in coordination of care (as documented) at patient's floor/unit and/or counseling patient:
[2022-05-30] MEDS: ENOXAPARIN 40 MG/0.4 ML SYRINGE SQ SCH (08:49)
[2022-05-30] MEDS: FAMOTIDINE 20 MG TABLET PO SCH ×2 (08:49→20:16)
[2022-05-30] MEDS: DOCUSATE SODIUM 100 MG CAPSULE PO SCH ×2 (10:05→20:16)
[2022-05-30] MEDS: ACETAMINOPHEN 325 MG TABLET PO PRN (20:06)
[2022-05-30] MEDS ORDERED: IPRATROPIUM/ALBUTEROL 3 ML AMPUL.NEB NEB ONE (23:12)
[2022-05-30] MEDS ORDERED: IPRATROPIUM/ALBUTEROL 3 ML AMPUL.NEB NEB PRN (23:15)
[2022-05-31] MEDS: AMPICILLIN SODIUM/SULBACTAM NA 3 GM in 0.9 % SODIUM CHLORIDE 100 ML IV SCH ×5 (00:19→23:42)
[2022-05-31] MEDS: 0.9 % SODIUM CHLORIDE 1,000 ML IV SCH ×3 (00:35→17:27)
[2022-05-31] MEDS: ONDANSETRON 4 MG/2 ML VIAL IV PRN ×4 (00:46→20:51)
[2022-05-31] MEDS: HYDROmorphone 0.5 MG/0.5 ML SYRINGE IV PRN ×7 (04:53→23:03)
[2022-05-31] MEDS: METOCLOPRAMIDE 10 MG/2 ML VIAL IV PRN ×3 (04:54→16:48)
[2022-05-31] MEDS: 0.9 % SODIUM CHLORIDE 10 ML SYRINGE IV SCH ×3 (05:58→21:10)
[2022-05-31 06:26] LABS: Basophils # (Auto) 0.05 K/mcL (0.00-0.30); Basophils % (Auto) 0.3 % (0.0-2.0); Eosinophils # (Auto) 0.14 K/mcL (0.00-0.70); Eosinophils % (Auto) 0.9 % (0.0-7.0); Hematocrit 28.9 % (34.1-44.9); Hemoglobin 9.1 g/dL (11.2-15.7); Lymphocytes % (Auto) 8.6 % (15.5-49.0); Mean Cell Volume 88.9 fL (80.0-100.0); Mean Corpuscular HGB Conc 31.5 g/dL (31.0-36.0); Mean Platelet Volume 11.4 fL (8.8-12.5); Monocytes # (Auto) 1.06 K/mcL (0.10-0.90); Neutrophils % (Auto) 82.3 % (38.0-78.0); Platelet Count 200 K/mcL (140-440); RBC 3.25 M/mcL (3.59-5.38); Red Cell Distribution Width 12.6 % (11.5-14.5); WBC 15.1 K/mcL (4.5-11.0)
[2022-05-31 06:57] LABS: ALT/SGPT 76 U/L (<40); AST/SGOT 55 U/L (<32); Albumin 2.5 gm/dL (3.2-5.2); Albumin/Globulin Ratio 0.8 (1.0-2.3); Alkaline Phosphatase 130 U/L (39-117); Bilirubin,Direct < 0.2 mg/dL (0-0.3); Bilirubin,Total 0.3 mg/dL (0.1-1.0); Blood Urea Nitrogen 20 mg/dL (6-20); Calcium 7.7 mg/dL (8.6-10.4); Carbon Dioxide 21 mmol/L (22-30); Chloride 108 mmol/L (96-108); Glomerular Filtration Rate 74; Glucose 171 mg/dL (70-105); Lactate Dehydrogenase 191 U/L (135-225); Phosphorous 1.6 mg/dL (2.5-4.5); Triglycerides 118 mg/dL (<150)
[2022-05-31] MEDS: ENOXAPARIN 40 MG/0.4 ML SYRINGE SQ SCH (08:39)
[2022-05-31] MEDS: DOCUSATE SODIUM 100 MG CAPSULE PO SCH ×2 (08:39→20:45)
[2022-05-31] MEDS: FAMOTIDINE 20 MG TABLET PO SCH ×2 (08:39→20:45)
--- NOTE | 2022-05-31 11:41 | Internal Med Progress Note ---
SUBJECTIVE Subjective Patient information: Note initiated : 05/31/22 at 11:40 am Service Date, if different from initiated Date: [] Patient: Marlin Aceves 51 y/o F admitted on 05/29/22 for swollen glands in neck. Chief Complaint: [Fevers, chills throat pain] Principal diagnosis: Sepsis, pharyngitis Interval history: The patient states that her swallowing is slowly starting to improve. She is feeling better day by day. Constitutional Vitals: Vital Signs Temp Pulse Resp BP Pulse Ox O2 Del Method O2 Flow Rate 99.0 F 86 16 132/67 93 Room Air 0.5 05/31/22 08:01 05/31/22 10:01 05/31/22 05:00 05/31/22 10:01 05/31/22 10:01 05/31/22 10:01 05/31/22 06:01 Period Temp Pulse Resp BP Sys/Holguin Pulse Ox O2 Del Method O2 Flow Rate Last 24 Hr 98.3 F-101.5 F 82-111 14-18 113-147/59-76 90-100 Nasal Cannula-Room Air 0.5-1 Intake and Output 05/30/22 05/31/22 05/31/22 19:59 03:59 11:59 Intake Total 1860 700 260 Output Total 650 400 Balance 1210 300 260 Weight 74.253 kg Intake & Output: Intake & Output 05/30/22 05/31/22 05/31/22 19:59 03:59 11:59 Intake Total 1860 700 260 Output Total 650 400 Balance 1210 300 260 Weight 74.253 kg Intake: IV 1200 100 100 Sodium Chloride 0.9% 1,000 ml @ 1000 125 mls/hr IV .Q8H [facility] Rx#: [id number] Unasyn 3 gm In Sodium Chloride 200 100 100 0.9% 100 ml @ 200 mls/hr IV Q6H [facility] Rx#:[id number] Oral 180 600 160 GI Tube Flush 480 Output: Void Amount 450 400 Emesis 200 Other: Meal Breakfast Percent of Meal Consumed 25% Urine Appearance Clear Clear Urine Color Yellow Yellow Urine Odor Strong Stool Size Small Stool Color Brown Stool Consistency Formed Head Head exam: Present atraumatic and normal inspection Eye Eye exam: Present normal appearance ENT ENT exam: Present mucous membranes moist, normal exam and normal external ear exam Neck Neck exam: Present lymphadenopathy and tenderness Respiratory Respiratory exam: Present normal respiratory exam Cardiovascular Cardiovascular exam: Present normal rate and rhythm GI/Abdominal GI/Abdominal exam: Present normal bowel sounds Back Exam Back exam: Present normal inspection Neurological Exam Neurological exam: Present alert and oriented X3 Skin Skin exam: Present intact and warm OBJ DATA Labs 05/31/22 05:28 05/31/22 05:28 Labs: Abnormal Lab Results 05/31/22 05/31/22 05/30/22 05:28 05:28 05:35 WBC 15.1 H RBC 3.25 L Hgb 9.1 L Hct 28.9 L POC Hct Immature Gran % (Auto) 0.9 H Neut % (Auto) 82.3 H Lymph % (Auto) 8.6 L Lymph # (Auto) 1.30 L Briscoe # (Auto) 1.06 H Immature Gran # 0.14 H Absolute Neutrophils 12.38 H POC VBG pCO2 at Temp Carbon Dioxide 21 L POC BUN BUN 26 H Glucose 171 H 183 H POC Glucose Calcium 7.7 L 8.0 L Phosphorus 1.6 L 2.4 L AST 55 H 110 H ALT 76 H 96 H Alkaline Phosphatase 130 H 121 H Total Protein 5.5 L 5.4 L Albumin 2.5 L 2.7 L Albumin/Globulin Ratio 0.8 L Procalcitonin 05/30/22 05/29/22 05/29/22 05:35 12:13 12:02 WBC 21.1 H RBC 3.29 L Hgb 9.3 L Hct 28.8 L POC Hct Immature Gran % (Auto) 1.2 H Neut % (Auto) 87.8 H Lymph % (Auto) 4.6 L Lymph # (Auto) 0.97 L Briscoe # (Auto) 1.26 H Immature Gran # 0.26 H Absolute Neutrophils 18.53 H POC VBG pCO2 at Temp 39.1 L Carbon Dioxide POC BUN BUN Glucose POC Glucose Calcium Phosphorus AST ALT Alkaline Phosphatase Total Protein Albumin Albumin/Globulin Ratio Procalcitonin 0.14 H 05/29/22 05/29/22 10:11 10:06 WBC 31.7 H* RBC Hgb Hct POC Hct 35.0 L Immature Gran % (Auto) 1.0 H Neut % (Auto) 89.9 H Lymph % (Auto) 2.5 L Lymph # (Auto) 0.79 L Briscoe # (Auto) 2.02 H Immature Gran # 0.33 H Absolute Neutrophils 28.44 H POC VBG pCO2 at Temp Carbon Dioxide POC BUN 29 H BUN Glucose POC Glucose 283 H Calcium Phosphorus AST ALT Alkaline Phosphatase Total Protein Albumin Albumin/Globulin Ratio Procalcitonin Meds: Medications Acetaminophen (Acetaminophen 325 Mg Tablet) 650 mg PO Q6HP PRN; Protocol PRN Reason: Per Pain Protocol/Fever > 101 Last Admin: 05/30/22 20:06 Dose: 650 mg Hydrocodone Bitart/Acetaminophen (Hydrocodone/Apap 5/325mg Tablet) 1 tab PO Q6HP PRN; Protocol PRN Reason: Per Pain Protocol Last Admin: 05/29/22 14:58 Dose: 1 tab Albuterol/Ipratropium (Ipratropium/Albuterol 3 Ml Ampul.Neb) 3 ml NEB Q4HP PRN PRN Reason: Shortness Of Breath Last Admin: 05/30/22 23:17 Dose: 3 ml Diagnostic Test (Pha) (Accu-Chek 1 Each Strip) 1 each FS ACHS [facility] Last Admin: 05/31/22 07:56 Dose: 1 each Docusate Sodium (Docusate Sodium 100 Mg Capsule) 100 mg PO BID [facility] Last Admin: 05/31/22 08:39 Dose: 100 mg Enoxaparin Sodium (Enoxaparin 40 Mg/0.4 Ml Syringe) 40 mg SQ DAILY [facility] Last Admin: 05/31/22 08:39 Dose: 40 mg Famotidine (Famotidine 20 Mg Tablet) 20 mg PO BID [facility] Last Admin: 05/31/22 08:39 Dose: 20 mg Hydromorphone HCl (Hydromorphone 0.5 Mg/0.5 Ml Syringe) 0.5 mg IV Q1HP PRN; Protocol PRN Reason: Per Pain Protocol Last Admin: 05/31/22 11:12 Dose: 0.5 mg Ampicillin Sodium/Sulbactam (Sodium 3 gm/ Sodium Chloride) 100 mls @ 200 mls/hr IV Q6H [facility] Last Infusion: 05/31/22 06:34 Dose: Infused Sodium Chloride (Sodium Chloride 0.9%) 1,000 mls @ 125 mls/hr IV .Q8H [facility] Last Admin: 05/31/22 00:35 Dose: Not Given Lactulose (Lactulose 20 Gm/30 Ml Oral.Nahed) 10 gm PO DAILYP PRN PRN Reason: Constipation Metoclopramide HCl (Metoclopramide 10 Mg/2 Ml Vial) 5 mg IV Q6HP PRN PRN Reason: Nausea Last Admin: 05/31/22 11:12 Dose: 5 mg Ondansetron HCl (Ondansetron 4 Mg/2 Ml Vial) 4 mg IV Q4HP PRN; Protocol PRN Reason: Nausea And Vomiting Last Admin: 05/31/22 07:48 Dose: 4 mg Senna (Sennosides 1 Tablet) 2 tab PO HSP PRN PRN Reason: Constipation Sodium Chloride (0.9 % Sodium Chloride 10 Ml Syringe) 10 ml IV Q8 AIDE Last Admin: 05/31/22 05:58 Dose: Not Given A/P Narrative A/P Narrative: Assessment: 51-year-old female with a history of type 1 diabetes mellitus managed with an insulin pump, hypertension, hyperlipidemia, recent Rodriguez's palsy admitted for sepsis secondary to a soft tissue neck infection. CT of the patient's neck with contrast showed moderate thickening of the right nasopharynx and oropharynx mckoy including the pharyngeal mucosal space with inflammation extending in the right extra pharyngeal soft tissue inferiorly to the right paraglottic region, no abscess identified. #Sepsis secondary to a soft tissue neck infection #Right-sided neck pain secondary to infection/inflammation #Nausea and vomiting #Mild transaminitis #Type 1 diabetes mellitus complicated by gastroparesis and neuropathy #Essential hypertension #Hyperlipidemia #Rodriguez's palsy #GERD Plan -We will discontinue vancomycin and continue Unasyn -IV fluid. -Follow blood cultures x2. -Monitor WBC, renal function, electrolytes, LFTs. -Analgesics as needed. -Antiemetics as needed. -Utilize the patient's insulin pump and continuous glucose meter for inpatient diabetes mellitus management. -Continue home Pepcid, holding home losartan and hydrochlorothiazide for now. -Consistent carbohydrate diet. -DVT prophylaxis: Lovenox -Disposition: home in 1-2 days Time Spent With Patient Time: Total time spent is greater than 50% in coordination of care (as documented) at patient's floor/unit and/or counseling patient:
[2022-05-31] MEDS: ACETAMINOPHEN 325 MG TABLET PO PRN ×2 (16:37→20:45)
[2022-05-31] MEDS ORDERED: LIDOCAINE 4% TOP SOL 50ML BOTTLE TOPICAL PRN (17:11)
[2022-05-31] MEDS ORDERED: LIDOCAINE VISCOUS 2% 15 ML UNIT DOSE CUP PO PRN (17:17)
[2022-05-31] MEDS: guaiFENesin 600 MG TAB.SR.12H PO SCH ×2 (17:33→20:46)
[2022-06-01] MEDS: 0.9 % SODIUM CHLORIDE 1,000 ML IV SCH ×2 (00:26→10:03)
[2022-06-01] MEDS: HYDROmorphone 0.5 MG/0.5 ML SYRINGE IV PRN ×3 (03:17→07:50)
[2022-06-01] MEDS: METOCLOPRAMIDE 10 MG/2 ML VIAL IV PRN ×2 (03:17→10:02)
[2022-06-01] MEDS: 0.9 % SODIUM CHLORIDE 10 ML SYRINGE IV SCH (05:00)
[2022-06-01] MEDS: AMPICILLIN SODIUM/SULBACTAM NA 3 GM in 0.9 % SODIUM CHLORIDE 100 ML IV SCH ×2 (05:18→12:00)
[2022-06-01 06:06] LABS: Basophils # (Auto) 0.05 K/mcL (0.00-0.30); Basophils % (Auto) 0.5 % (0.0-2.0); Eosinophils # (Auto) 0.54 K/mcL (0.00-0.70); Eosinophils % (Auto) 5.7 % (0.0-7.0); Hematocrit 28.1 % (34.1-44.9); Hemoglobin 8.9 g/dL (11.2-15.7); Lymphocytes # (Auto) 1.54 K/mcL (1.50-4.80); Lymphocytes % (Auto) 16.3 % (15.5-49.0); Mean Cell Volume 88.1 fL (80.0-100.0); Mean Corpuscular HGB Conc 31.7 g/dL (31.0-36.0); Mean Platelet Volume 11.2 fL (8.8-12.5); Monocytes # (Auto) 0.84 K/mcL (0.10-0.90); Monocytes % (Auto) 8.9 % (1.0-12.0); Neutrophils % (Auto) 67.6 % (38.0-78.0); Platelet Count 206 K/mcL (140-440); RBC 3.19 M/mcL (3.59-5.38); Red Cell Distribution Width 12.5 % (11.5-14.5); WBC 9.5 K/mcL (4.5-11.0)
[2022-06-01] MEDS: ONDANSETRON 4 MG/2 ML VIAL IV PRN (07:49)
[2022-06-01] MEDS: ENOXAPARIN 40 MG/0.4 ML SYRINGE SQ SCH (07:49)
[2022-06-01] MEDS: guaiFENesin 600 MG TAB.SR.12H PO SCH (07:50)
[2022-06-01] MEDS: FAMOTIDINE 20 MG TABLET PO SCH (07:50)
[2022-06-01] MEDS: DOCUSATE SODIUM 100 MG CAPSULE PO SCH (07:52)
[2022-06-01] MEDS: HYDROcodone/APAP 5/325MG TABLET PO PRN (09:55)
--- NOTE | 2022-06-01 10:17 | Discharge Summary ---
Discharge Provider Provider IMPORTANT FOLLOW-UP INFORMATION FOR PCP: 1. Hold BP meds for 1 week 2. Complete 14 days total of antibiotics 3. Advance diet as tolerated 4. Continue tramadol and ibuprofen for pain 5. F/u with PCP within 1 week Patient information: Note initiated : 06/01/22 at 10:16 am Service Date, if different from initiated Date: [] Patient: Marlin Aceves 51 y/o F admitted on 05/29/22 for swollen glands in neck. Chief Complaint: [] Date of admission: 05/29/22 14:45 Discharge date: 06/01/22 Primary care physician: Devon Juarez MD Consults: 05/29/22 Consult to Physician [CONS] Stat Comment: Consulting Provider: Victor Hugo Bishop Reason For Exam: Physician to Consult COURSE Hospital Course Hospital course: Patient had severe pharyngitis for which she required 3 days of parenteral antibiotics with vancomycin and Unasyn. Her white blood cell count has normalized today. Lymphadenopathy, and pain has improved. Her diet has been slowly advanced. She will be transition to Augmentin for total of 14 days. She will follow-up with her primary care physician within 1 week's time. A/P Narrative A/P Narrative: Assessment: 51-year-old female with a history of type 1 diabetes mellitus managed with an insulin pump, hypertension, hyperlipidemia, recent Rodriguez's palsy admitted for sepsis secondary to a soft tissue neck infection. CT of the patient's neck with contrast showed moderate thickening of the right nasopharynx and oropharynx mckoy including the pharyngeal mucosal space with inflammation extending in the right extra pharyngeal soft tissue inferiorly to the right paraglottic region, no abscess identified. #Sepsis secondary to a soft tissue neck infection #Right-sided neck pain secondary to infection/inflammation #Nausea and vomiting #Mild transaminitis #Type 1 diabetes mellitus complicated by gastroparesis and neuropathy #Essential hypertension #Hyperlipidemia #Rodriguez's palsy #GERD Plan -We will discontinue vancomycin and continue Unasyn -IV fluid. -Follow blood cultures x2. -Monitor WBC, renal function, electrolytes, LFTs. -Analgesics as needed. -Antiemetics as needed. -Utilize the patient's insulin pump and continuous glucose meter for inpatient diabetes mellitus management. -Continue home Pepcid, holding home losartan and hydrochlorothiazide for now. -Consistent carbohydrate diet. -DVT prophylaxis: Lovenox Discharge diagnosis: Severe pharyngitis Time Spent with Patient Time attestation: Total time spent providing and/or coordinating discharge services: Time spent: Greater than 30 minutes EXAM Constitutional Vitals: Temp Pulse Resp BP Pulse Ox O2 Del Method O2 Flow Rate 98.4 F 89 16 136/61 100 Room Air 0.5 06/01/22 08:05 06/01/22 08:05 06/01/22 05:58 06/01/22 08:05 06/01/22 08:05 06/01/22 08:05 06/01/22 06:00 Discharge Data Data Completed and Pending Labs on day of discharge: Labs from last 24 hours 06/01/22 05:14 WBC 9.5 RBC 3.19 L Hgb 8.9 L Hct 28.1 L MCV 88.1 MCH 27.9 MCHC 31.7 RDW 12.5 Plt Count 206 MPV 11.2 Immature Gran % (Auto) 1.0 H Neut % (Auto) 67.6 Lymph % (Auto) 16.3 Harris % (Auto) 8.9 Eos % (Auto) 5.7 Baso % (Auto) 0.5 Lymph # (Auto) 1.54 Harris # (Auto) 0.84 Eos # (Auto) 0.54 Baso # (Auto) 0.05 Immature Gran # 0.09 H Absolute Neutrophils 6.40 Preliminary micro results at discharge 05/29/22 13:01 Blood Culture - Preliminary Blood 05/29/22 12:02 Blood Culture - Preliminary Blood Discharge Plan Patient/Caregiver Discharge Instructions Activity: increase activity as tolerated Prescriptions: New amoxicillin-pot clavulanate 875-125 mg tablet 1 tab PO BID 11 Days Qty: 22 0RF ondansetron 4 mg tablet,disintegrating 4 mg PO Q8H PRN (Reason: nausea and vomiting) Qty: 14 0RF tramadol 50 mg tablet 100 mg PO Q8H PRN (Reason: pain) 5 Days Qty: 20 0RF fluconazole [Diflucan] 150 mg tablet 150 mg PO ONCE Qty: 1 0RF Rx Instructions: as a single dose Continued albuterol sulfate 90 mcg/actuation HFA aerosol inhaler 2 puff inhalation Q4H PRN (Reason: shortness of breath or wheezing) Qty: 8.5 0RF famotidine [Pepcid] 20 mg tablet 20 mg PO BID insulin lispro [Humalog U-100 Insulin] See Rx Instructions .ROUTE .COMPLEX Patient Comments: PUMP Rx Instructions: Per insulin pump estradiol 0.5 mg tablet 0.5 mg PO QDAY Discontinued hydrochlorothiazide 25 mg tablet 25 mg PO QDAY Qty: 90 3RF losartan 50 mg tablet 50 mg PO QDAY Qty: 90 3RF Follow Up Plan Follow up with: Devon Juarez MD [Primary Care Provider] - Patient Disposition: Home, Self-Care Rehab Potential: Good I certify that the patient requires SNF services: No Overall status at discharge: patient is progressing back to baseline Discharge Orders: Discharge Order (Routine); Ordered 06/01/22 Ordered By: Anoop Landon
== END 2022-06-01 12:15 | disposition home or self-care (01) | DRG 872 ==
LOC: ED 09:14 → ICU 14:45
PROVIDERS: ADMIT Internal Medicine; ATTEND Student in an Organized Health Care Education/Training Program

== ENCOUNTER 2023-10-23 09:49 | Inpatient (IN) ==
[2023-10-23] MEDS ORDERED: IOPAMIDOL 100 ML BOTTLE IV ONE (09:50)
[2023-10-23 10:41] LABS: Basophils # (Auto) 0.03 K/mcL (0.00-0.30); Basophils % (Auto) 0.4 % (0.0-2.0); Eosinophils # (Auto) 0.57 K/mcL (0.00-0.70); Eosinophils % (Auto) 8.2 % (0.0-7.0); Hematocrit 36.9 % (34.1-44.9); Hemoglobin 12.2 g/dL (11.2-15.7); Lymphocytes # (Auto) 2.05 K/mcL (1.50-4.80); Lymphocytes % (Auto) 29.6 % (15.5-49.0); Mean Cell Volume 85.4 fL (80.0-100.0); Mean Corpuscular HGB Conc 33.1 g/dL (31.0-36.0); Mean Platelet Volume 11.1 fL (8.8-12.5); Monocytes # (Auto) 0.42 K/mcL (0.10-0.90); Monocytes % (Auto) 6.1 % (1.0-12.0); Neutrophils % (Auto) 55.6 % (38.0-78.0); Platelet Count 171 K/mcL (140-440); RBC 4.32 M/mcL (3.59-5.38); Red Cell Distribution Width 12.5 % (11.5-14.5); WBC 6.9 K/mcL (4.5-11.0)
[2023-10-23 11:06] LABS: ALT/SGPT 13 U/L (<40); AST/SGOT 23 U/L (<32); Albumin 4.5 gm/dL (3.2-5.2); Albumin/Globulin Ratio 1.7 (1.0-2.3); Alkaline Phosphatase 124 U/L (39-117); Bilirubin,Total 0.3 mg/dL (0.1-1.0); Blood Urea Nitrogen 41 mg/dL (6-20); Carbon Dioxide 27 mmol/L (22-30); Chloride 99 mmol/L (96-108); Globulin 2.7 gm/dL (2.2-3.7); Glomerular Filtration Rate 51; Glucose 407 mg/dL (70-105); Potassium 3.6 mmol/L (3.3-5.1); Sodium 138 mmol/L (133-145)
[2023-10-23] MEDS: 0.9 % SODIUM CHLORIDE 1,000 ML IV SCH (11:18)
[2023-10-23] MEDS: ACETAMINOPHEN 1,000 MG/100 ML BAG IV ONE (11:23)
[2023-10-23 11:29] LABS: Appearance,Urine CLEAR (Clear); Bilirubin,Urine Negative (Negative); Color,Urine STRAW; Culture Indicated,Urine No; Glucose,Urine (UA) >=500 mg/dL (Negative); Ketones,Urine Negative (Negative); Leukocyte Esterase,Urine Negative /uL (Negative); Nitrate,Urine Negative (Negative); Protein,Urine Negative (Negative); Specific Gravity,Urine 1.024 (1.000-1.035); Urine Blood Negative (Negative); Urine RBC < 1 /hpf (0-3); Urine Squamous Epithelial Cell 0 /hpf (0-4); Urine WBC < 1 /hpf (0-4); Urobilinogen,Urine Negative
[2023-10-23] MEDS: INSULIN REGULAR, HUMAN 1 UNIT/0.01 ML UNIT IV ONE (11:45)
[2023-10-23] MEDS: ASPIRIN 81 MG TAB.CHEW CHEWED ONE (12:41)
[2023-10-23] MEDS: ASPIRIN 325 MG ENTERIC COATED TABLET PO ONE (12:42)
[2023-10-23 13:20] LABS: Thyroid Stimulating Hormone 1.96 uIU/mL (0.27-5.01)
[2023-10-23] MEDS: CLOPIDOGREL 300 MG TABLET PO ONE (14:15)
[2023-10-23 14:22] LABS: Hemoglobin A1C 8.5 % Hgb (4.0-6.0)
[2023-10-23] MEDS ORDERED: ONDANSETRON 4 MG/2 ML VIAL IV PRN (15:07)
[2023-10-23] MEDS: 0.9 % SODIUM CHLORIDE 10 ML SYRINGE IV SCH (15:29)
[2023-10-23] MEDS: LACTATED RINGERS 1,000 ML IV SCH (15:29)
[2023-10-23] MEDS: FLUTICASONE UMECLIDIN VILANTER INH SCH (15:29)
[2023-10-23] MEDS: HEPARIN 5,000 UNIT/ML VIAL SQ SCH (20:26)
[2023-10-23] MEDS: ATORVASTATIN 40 MG TABLET PO SCH (20:27)
[2023-10-23] MEDS: FAMOTIDINE 20 MG TABLET PO SCH (20:27)
[2023-10-23] MEDS: ACETAMINOPHEN 325 MG TABLET PO PRN (20:27)
[2023-10-24 06:30] LABS: Basophils # (Auto) 0.03 K/mcL (0.00-0.30); Basophils % (Auto) 0.6 % (0.0-2.0); Eosinophils # (Auto) 0.62 K/mcL (0.00-0.70); Eosinophils % (Auto) 12.6 % (0.0-7.0); Hematocrit 30.6 % (34.1-44.9); Hemoglobin 10.2 g/dL (11.2-15.7); Lymphocytes # (Auto) 1.57 K/mcL (1.50-4.80); Lymphocytes % (Auto) 31.8 % (15.5-49.0); Mean Cell Volume 85.5 fL (80.0-100.0); Mean Corpuscular HGB Conc 33.3 g/dL (31.0-36.0); Mean Platelet Volume 11.5 fL (8.8-12.5); Monocytes # (Auto) 0.38 K/mcL (0.10-0.90); Monocytes % (Auto) 7.7 % (1.0-12.0); Neutrophils % (Auto) 47.3 % (38.0-78.0); Platelet Count 139 K/mcL (140-440); RBC 3.58 M/mcL (3.59-5.38); Red Cell Distribution Width 12.6 % (11.5-14.5); WBC 4.9 K/mcL (4.5-11.0)
[2023-10-24 07:02] LABS: Blood Urea Nitrogen 31 mg/dL (6-20); Calcium 9.4 mg/dL (8.6-10.4); Carbon Dioxide 27 mmol/L (22-30); Chloride 106 mmol/L (96-108); Glomerular Filtration Rate 64; Glucose 157 mg/dL (70-105); Sodium 140 mmol/L (133-145)
[2023-10-24] MEDS: ASPIRIN 81 MG TAB.CHEW CHEWED SCH (08:18)
[2023-10-24] MEDS: CLOPIDOGREL 75 MG TABLET PO SCH (08:18)
== END 2023-10-24 16:11 | disposition home or self-care (01) | DRG 74 ==
LOC: ED 09:49 → MEDSUR 14:46
PROVIDERS: ADMIT Student in an Organized Health Care Education/Training Program; ATTEND Internal Medicine